=== PATIENT | male | born 1970 | race Caucasian/White ===

== ENCOUNTER → 2016-07-30 | Outpatient (CLI) | payer OTHER ==
--- NOTE | 2016-07-30 11:32 | KCIC ---
PROCEDURE MR of the right knee HISTORY Right knee pain for about 1 year. No swelling. Pain is lateral. COMPARISON None TECHNIQUE Routine multiplanar sequences are obtained. FINDINGS Mild signal within the posterior horn of the medial meniscus but no surface violation or tear. No evidence of a lateral meniscal tear. The anterior and posterior cruciate ligaments are intact. Medial collateral ligament is intact. Iliotibial band unremarkable. Fibular collateral ligament, biceps femoris tendon and popliteus tendon are intact. There is mild signal of the proximal patellar tendon compatible with subtle tendinosis. No tear. Trace joint effusion at the knee. No acute articular cartilage defect. No evidence of osteochondral loose body. No evidence of bone lesion or acute fracture. No acute soft tissue injury. IMPRESSION 1. No meniscal tear or internal derangement. 2. Very mild proximal patellar tendinosis. Electronically signed by: Karthikeyan Rand MD (Jul 30, 2016 11:30:33)
== END | disposition home or self-care (01) ==
LOC: KCIC MRI 08:24
PROVIDERS: ATTEND Family Medicine
DX: M25.561 Pain in right knee (principal)
CPT/HCPCS: 73721